=== PATIENT | female | born 1930 | race Caucasian/White ===

== ENCOUNTER 2016-10-02 10:25 | Inpatient (IN) | payer OTHER ==
[~2016-10-02] VITALS: Ht 152.4 cm; Wt 54.0 kg
[~2016-10-02 10:25] MED LIST: ALBUTEROL SULFAT2 MG PO; CALCIUM 500 +1 EAC5 PO; CENTRUM SILVER1 EAC3 PO; CENTRUM SILVER1 EACH PO; DILAUDID2 MG PO; Dilaudid PO; Ecotrin PO; GARLIC500 M1 PO; LEVOTHYROXINE100 MCG PO; LIDODERM 5% P1 PATCH TD; OMEGA 3 FISH O1 EACH PO; OMEGA-3 FISH O1 EAC3 PO; PLAVIX75 MG PO; PREDNISONE10 M1 PO; PREDNISONE50 MG PO; PRESERVISION A1 EAC2 PO; PROAIR HFA8.5 GM IH; PROTONIX40 M1 PO; PROTONIX40 MG PO; PROVENTIL,2.5 MG/3 M IH; Plavix PO; Proventil,Ventolin H IH; SYNTHROID100 MCG PO; Senokot S,Pericolace PO; TOPROL XL100 MG PO; TOPROL XL50 MG PO; Topamax PO; ZITHROMAX Z-PA250 MG PO; ZOCOR20 MG PO; Zocor PO
[2016-10-02 12:08] LABS: EOSINOPHIL (%) 0.2 % (0-5); HEMATOCRIT 36.4 % (36.0-46.0); IMMATURE GRANULOCYTE (%) 0.9 % (0.0-0.7); IMMATURE GRANULOCYTE COUNT 0.1 K/uL; INSTRUMENT ABS NEUTROPHIL CT 11.7 K/uL; LYMPHOCYTE COUNT 1.8 K/uL (1.0-2.8); MCH 30.1 PG (29.0-34.0); MCHC 34.6 G/DL (30.0-36.0); MCV 87.1 FL (83-99); MEAN PLAT.VOLUME 10.3 uM^3 (9.5-12.4); MONOCYTE (%) 10.3 % (3-12); MONOCYTE COUNT 1.6 K/uL (0-0.8); NEUTROPHIL (%) 76.4 % (45-76); NEUTROPHIL COUNT 11.7 K/uL (1.8-6.4); PLATELET COUNT 384 K/uL (156-360); RBC DIS.WIDTH-CV 12.1 % (11.8-14.6); RBC DIS.WIDTH-SD 39.1 % (39-53); RED BLOOD COUNT 4.18 M/uL (3.80-5.20); WHITE BLOOD COUNT 15.3 K/uL (4.1-10.2)
[2016-10-02 12:22] LABS: CHLORIDE 90 mEq/L (99-109); POTASSIUM 3.7 mEq/L (3.7-5.4); SODIUM 125 mEq/L (136-147)
[2016-10-02 12:24] LABS: GLUCOSE 112 mg/dL (70-99)
[2016-10-02 12:25] LABS: ANION GAP 11 MEQ/L (2-14)
[2016-10-02 12:28] LABS: GFR ESTIMATE (CALCULATED) > 59 mL/min/
[2016-10-02 12:29] LABS: UREA NITROGEN (BUN) 11 mg/dL (9-23)
[2016-10-02 12:33] LABS: INFLUENZA A VIRAL ANTIGEN NEGATIVE; INFLUENZA B VIRAL ANTIGEN NEGATIVE
[2016-10-02 15:30] LABS: URIC ACID 2.4 mg/dL (3.1-9.2)
[2016-10-02 15:45] VITALS: BP 170/75
[2016-10-02 18:23] LABS: ANION GAP 8 MEQ/L (2-14); CHLORIDE 88 MEQ/L (99-109); GFR ESTIMATE (CALCULATED) > 59 mL/min/; GLUCOSE 126 mg/dL (70-99); POTASSIUM 3.4 MEQ/L (3.7-5.4); SAMPLE HEMOLYSIS CHECK 0; SAMPLE ICTERIC CHECK 0; SAMPLE LIPEMIA CHECK 0; SODIUM 122 MEQ/L (136-147); UREA NITROGEN (BUN) 9 mg/dL (9-23)
[2016-10-02 20:27] VITALS: BP 136/63
[2016-10-03 00:26] VITALS: BP 132/31; BP 136/63
[2016-10-03 03:52] VITALS: BP 122/58
[2016-10-03 06:44] LABS: ADD MIUA? NO; BILIRUBIN NEGATIVE; BLOOD NEGATIVE; COLOR YELLOW ((YELLOW)); GLUCOSE (STRIP) NEGATIVE; KETONES NEGATIVE; LEUKOCYTES NEGATIVE; NITRITE NEGATIVE; PROTEIN (STRIP) NEGATIVE; SPECIFIC GRAVITY 1.011 (1.000-1.030)
[2016-10-03 07:25] LABS: HEMATOCRIT 33.8 % (36.0-46.0); MCH 29.9 PG (29.0-34.0); MCV 87.8 FL (83-99); MEAN PLAT.VOLUME 10.4 uM^3 (9.5-12.4); PLATELET COUNT 399 K/uL (156-360); RBC DIS.WIDTH-CV 12.4 % (11.8-14.6); RBC DIS.WIDTH-SD 39.8 % (39-53); RED BLOOD COUNT 3.85 M/uL (3.80-5.20); WHITE BLOOD COUNT 14.5 K/uL (4.1-10.2)
[2016-10-03 07:51] LABS: ANION GAP 7 MEQ/L (2-14); CHLORIDE 93 MEQ/L (99-109); GFR ESTIMATE (CALCULATED) > 59 mL/min/; GLUCOSE 95 mg/dL (70-99); SAMPLE HEMOLYSIS CHECK 0; SAMPLE ICTERIC CHECK 0; SAMPLE LIPEMIA CHECK 0; SODIUM 127 MEQ/L (136-147); UREA NITROGEN (BUN) 9 mg/dL (9-23)
[2016-10-03 07:52] LABS: POTASSIUM 4.5 MEQ/L (3.7-5.4)
[2016-10-03 08:03] VITALS: BP 144/71
[2016-10-03 08:31] LABS: POINT-OF-CARE METER ID UU14188625
[2016-10-03 11:53] VITALS: BP 128/63
[2016-10-03 15:22] LABS: ANION GAP 9 MEQ/L (2-14); CHLORIDE 92 MEQ/L (99-109); GFR ESTIMATE (CALCULATED) > 59 mL/min/; GLUCOSE 118 mg/dL (70-99); POTASSIUM 3.8 MEQ/L (3.7-5.4); SAMPLE HEMOLYSIS CHECK 0; SAMPLE ICTERIC CHECK 0; SAMPLE LIPEMIA CHECK 0; SODIUM 127 MEQ/L (136-147); UREA NITROGEN (BUN) 11 mg/dL (9-23)
[2016-10-03 15:55] VITALS: BP 154/74
[2016-10-03 19:31] VITALS: BP 159/74
[2016-10-04 03:45] VITALS: BP 147/67
[2016-10-04 07:43] LABS: ANION GAP 6 MEQ/L (2-14); CHLORIDE 93 MEQ/L (99-109); GFR ESTIMATE (CALCULATED) > 59 mL/min/; GLUCOSE 107 mg/dL (70-99); POTASSIUM 4.2 MEQ/L (3.7-5.4); SAMPLE HEMOLYSIS CHECK 0; SAMPLE ICTERIC CHECK 0; SAMPLE LIPEMIA CHECK 0; SODIUM 127 MEQ/L (136-147); UREA NITROGEN (BUN) 10 mg/dL (9-23)
[2016-10-04 08:02] VITALS: BP 139/61
[2016-10-04 14:23] LABS: ANION GAP 7 MEQ/L (2-14); CHLORIDE 94 MEQ/L (99-109); GFR ESTIMATE (CALCULATED) > 59 mL/min/; GLUCOSE 136 mg/dL (70-99); POTASSIUM 4.3 MEQ/L (3.7-5.4); SAMPLE HEMOLYSIS CHECK 0; SAMPLE ICTERIC CHECK 0; SAMPLE LIPEMIA CHECK 0; SODIUM 129 MEQ/L (136-147); UREA NITROGEN (BUN) 10 mg/dL (9-23)
[2016-10-04 15:11] VITALS: BP 165/70
[2016-10-04 17:14] LABS: INTER. NORMALIZED RATIO 1.1; PROTHROMBIN TIME 11.5 (9.2-11.2)
[2016-10-04 23:21] VITALS: BP 141/64
[2016-10-05 06:42] LABS: ANION GAP 7 MEQ/L (2-14); CHLORIDE 98 MEQ/L (99-109); GFR ESTIMATE (CALCULATED) > 59 mL/min/; GLUCOSE 105 mg/dL (70-99); SAMPLE HEMOLYSIS CHECK 0; SAMPLE ICTERIC CHECK 0; SAMPLE LIPEMIA CHECK 0; SODIUM 134 MEQ/L (136-147); UREA NITROGEN (BUN) 8 mg/dL (9-23)
[2016-10-05 06:47] LABS: INTER. NORMALIZED RATIO 1.1; PROTHROMBIN TIME 11.7 (9.2-11.2)
[2016-10-05 08:54] VITALS: BP 165/70
[2016-10-05 16:22] VITALS: BP 148/99
[2016-10-05 20:00] VITALS: BP 147/67
[2016-10-06 00:31] VITALS: BP 155/74
[2016-10-06 07:16] LABS: ANION GAP 12 MEQ/L (2-14); CHLORIDE 95 MEQ/L (99-109); GFR ESTIMATE (CALCULATED) > 59 mL/min/; GLUCOSE 106 mg/dL (70-99); POTASSIUM 4.6 MEQ/L (3.7-5.4); SAMPLE HEMOLYSIS CHECK 0; SAMPLE ICTERIC CHECK 0; SAMPLE LIPEMIA CHECK 0; SODIUM 133 MEQ/L (136-147); UREA NITROGEN (BUN) 9 mg/dL (9-23)
[2016-10-06 07:18] LABS: INTER. NORMALIZED RATIO 1.3; PROTHROMBIN TIME 13.6 (9.2-11.2)
[2016-10-06 08:17] VITALS: BP 187/82
[2016-10-06] MEDS ORDERED: COUMADIN4 MG PO (14:58)
[2016-10-06] MEDS ORDERED: KEFLEX500 MG PO (14:58)
[2016-10-06] MEDS ORDERED: COLCHICINE0.6 M1 PO (14:58)
[2016-10-06] MEDS ORDERED: FUROSEMIDE20 MG PO (14:58)
[2016-10-06] MEDS ORDERED: LOVENOX60 MG/0.6 SC (14:58)
[2016-10-06] MEDS ORDERED: SODIUM CHLORIDE1 G1 PO (14:58)
[2016-10-06 16:00] VITALS: BP 134/63
[2016-10-06 23:52] VITALS: BP 180/83
[2016-10-07 07:24] LABS: ANION GAP 9 MEQ/L (2-14); CHLORIDE 96 MEQ/L (99-109); GFR ESTIMATE (CALCULATED) > 59 mL/min/; GLUCOSE 97 mg/dL (70-99); POTASSIUM 4.4 MEQ/L (3.7-5.4); SAMPLE HEMOLYSIS CHECK 0; SAMPLE ICTERIC CHECK 0; SAMPLE LIPEMIA CHECK 0; SODIUM 132 MEQ/L (136-147); UREA NITROGEN (BUN) 11 mg/dL (9-23)
[2016-10-07 07:45] VITALS: BP 160/71
[2016-10-07 07:56] LABS: INTER. NORMALIZED RATIO 1.6; PROTHROMBIN TIME 16.7 (9.2-11.2)
== END 2016-10-07 13:41 | disposition home health service (06) | DRG 644 ==
LOC: EME 10:25 → 5SOUTH 13:49 → EDOF 13:49 → 5SOUTH 15:32
PROVIDERS: Emergency Medicine; Internal Medicine
DX: E22.2 Syndrome of inappropriate secretion of antidiuretic hormone (principal); I82.442 Acute embolism and thrombosis of left tibial vein; I82.602 Acute embolism and thrombosis of unspecified veins of left upper extremity; J20.9 Acute bronchitis, unspecified; L03.115 Cellulitis of right lower limb; L03.113 Cellulitis of right upper limb; J98.11 Atelectasis; E87.6 Hypokalemia; R21 Rash and other nonspecific skin eruption; M10.9 Gout, unspecified; J45.909 Unspecified asthma, uncomplicated; I10 Essential (primary) hypertension; G43.909 Migraine, unspecified, not intractable, without status migrainosus; E03.9 Hypothyroidism, unspecified; K21.9 Gastro-esophageal reflux disease without esophagitis; E78.2 Mixed hyperlipidemia; G89.29 Other chronic pain; M19.90 Unspecified osteoarthritis, unspecified site; Z99.81 Dependence on supplemental oxygen
CPT/HCPCS: 70450; 71010; 80048; 80048 91; 81003; 82533 91; 82948; 83880; 83930; 83935; 84300; 84443; 84550; 85025; 85027; 85610; 87040; 87502; 93970; 93971; 94640; 94640 76; 94760; 94799; 99202; 99281; 99285; J0690; J1650; J7030; J7050

== ENCOUNTER 2016-11-30 15:59 | Inpatient (IN) | payer OTHER ==
[~2016-11-30] VITALS: Ht 162.6 cm; Wt 64.6 kg
[~2016-11-30 15:59] MED LIST changes: +COLCHICINE0.6 M1 PO; +COUMADIN4 MG PO; +FUROSEMIDE20 MG PO; +KEFLEX500 MG PO; +LOVENOX60 MG/0.6 SC; +SODIUM CHLORIDE1 G1 PO
[2016-11-30 16:52] LABS: HEMATOCRIT 42.3 % (36.0-46.0); MCH 29.2 PG (29.0-34.0); MCHC 33.8 G/DL (30.0-36.0); MCV 86.3 FL (83-99); MEAN PLAT.VOLUME 10.6 uM^3 (9.5-12.4); PLATELET COUNT 314 K/uL (156-360); RBC DIS.WIDTH-CV 13.3 % (11.8-14.6); RBC DIS.WIDTH-SD 42.2 % (39-53)
[2016-11-30 16:54] LABS: WHITE BLOOD COUNT 15.6 K/uL (4.1-10.2)
[2016-11-30 17:01] LABS: CHLORIDE 94 mEq/L (99-109); POTASSIUM 4.6 mEq/L (3.7-5.4); SODIUM 129 mEq/L (136-147)
[2016-11-30 17:02] LABS: GLUCOSE 108 mg/dL (70-99)
[2016-11-30 17:04] LABS: ANION GAP 10 MEQ/L (2-14)
[2016-11-30 17:06] LABS: GFR ESTIMATE (CALCULATED) > 59 mL/min/
[2016-11-30 17:07] LABS: UREA NITROGEN (BUN) 19 mg/dL (9-23)
[2016-11-30 17:09] LABS: CREATINE KINASE 204 IU/L (1-294)
[2016-11-30 18:31] LABS: ADD MIUA? YES; BILIRUBIN NEGATIVE; BLOOD SMALL; COLOR YELLOW ((YELLOW)); GLUCOSE (STRIP) NEGATIVE; KETONES 5; LEUKOCYTES SMALL; NITRITE NEGATIVE; PROTEIN (STRIP) 30; SPECIFIC GRAVITY 1.015 (1.000-1.030); UROBILINOGEN 0.2 MG/DL (0.2-1.0)
[2016-11-30 18:46] LABS: BACTERIA NONE SEEN /HPF; EPITHELIAL CELLS RARE /HPF; GRANULAR CASTS 0-5 /LPF; HYALINE CASTS 0-5 /LPF; MUCUS 4+ /LPF; RED BLOOD CELLS 0-5 /HPF (0-5); UCUL ADDED? NO
[2016-11-30] MEDS ORDERED: WARFARIN SODIUM4 MG PO (20:48)
[2016-11-30] MEDS ORDERED: SODIUM CHLORIDE1 G1 PO (20:50)
[2016-11-30] MEDS ORDERED: K-DUR20 MEQ PO (20:51)
[2016-11-30] MEDS ORDERED: ALLOPURINOL100 MG PO (20:52)
[2016-11-30 23:40] VITALS: BP 188/84
[2016-12-01 00:12] LABS: INTER. NORMALIZED RATIO 1.5; PROTHROMBIN TIME 15.8 (9.2-11.2)
[2016-12-01 00:18] LABS: HDL CHOLESTEROL 55 MG/DL (Desirable>=50); LDL CHOLESTEROL 119 mg/dL (Desirable<100); NON-HDL CHOLESTEROL 140 mg/dL (Desirable<160); TOTAL CHOLESTEROL 195 mg/dL (Desirable<200); TRIGLYCERIDES 106 MG/DL (Normal: <150)
[2016-12-01 00:39] LABS: TROP-I INTERPRETATION NEGATIVE; TROPONIN-I < 0.01 ng/mL (0.0-0.30)
[2016-12-01 07:16] LABS: Estimated Average Glucose 114 mg/dL (70-123); HEMOGLOBIN A1c (GLYCOHEMOGLOB) 5.6 % HGB (Below 5.7)
[2016-12-01 08:18] LABS: HEMATOCRIT 37.6 % (36.0-46.0); MCH 29.1 PG (29.0-34.0); MCHC 32.7 G/DL (30.0-36.0); MCV 88.9 FL (83-99); PLATELET COUNT 259 K/uL (156-360); RBC DIS.WIDTH-CV 13.6 % (11.8-14.6); RBC DIS.WIDTH-SD 44.1 % (39-53); RED BLOOD COUNT 4.23 M/uL (3.80-5.20); WHITE BLOOD COUNT 9.4 K/uL (4.1-10.2)
[2016-12-01 08:36] LABS: INTER. NORMALIZED RATIO 1.6; PROTHROMBIN TIME 16.5 (9.2-11.2)
[2016-12-01 08:58] LABS: TROP-I INTERPRETATION NEGATIVE; TROPONIN-I < 0.01 ng/mL (0.0-0.30)
[2016-12-01 09:01] VITALS: BP 188/81
[2016-12-01 09:04] LABS: ANION GAP 9 MEQ/L (2-14); CHLORIDE 97 MEQ/L (99-109); GFR ESTIMATE (CALCULATED) > 59 mL/min/; GLUCOSE 85 mg/dL (70-99); POTASSIUM 4.5 MEQ/L (3.7-5.4); SAMPLE HEMOLYSIS CHECK 0; SAMPLE ICTERIC CHECK 0; SAMPLE LIPEMIA CHECK 0; SODIUM 130 MEQ/L (136-147); UREA NITROGEN (BUN) 15 mg/dL (9-23)
[2016-12-01 12:43] VITALS: BP 146/81
[2016-12-01 13:27] LABS: TROP-I INTERPRETATION NEGATIVE; TROPONIN-I < 0.01 ng/mL (0.0-0.30)
[2016-12-01 20:00] VITALS: BP 166/87
[2016-12-01 23:57] VITALS: BP 154/78
[2016-12-02 03:59] VITALS: BP 156/76
[2016-12-02 06:41] LABS: ANION GAP 8 MEQ/L (2-14); CHLORIDE 96 MEQ/L (99-109); INTER. NORMALIZED RATIO 1.4; POTASSIUM 4.4 MEQ/L (3.7-5.4); PROTHROMBIN TIME 14.5 (9.2-11.2); SAMPLE HEMOLYSIS CHECK 0; SAMPLE ICTERIC CHECK 0; SAMPLE LIPEMIA CHECK 0; SODIUM 129 MEQ/L (136-147)
[2016-12-02 06:47] LABS: GFR ESTIMATE (CALCULATED) > 59 mL/min/; GLUCOSE 98 mg/dL (70-99); UREA NITROGEN (BUN) 15 mg/dL (9-23)
[2016-12-02 07:07] LABS: HEMATOCRIT 38.5 % (36.0-46.0); MCH 30.3 PG (29.0-34.0); MCHC 34.5 G/DL (30.0-36.0); MCV 87.7 FL (83-99); RBC DIS.WIDTH-CV 13.4 % (11.8-14.6); RBC DIS.WIDTH-SD 42.9 % (39-53); RED BLOOD COUNT 4.39 M/uL (3.80-5.20); WHITE BLOOD COUNT 10.9 K/uL (4.1-10.2)
[2016-12-02 07:57] LABS: HEMATOLOGY COMMENT 1 SMEAR COMPATIBLE; MEAN PLAT.VOLUME 11.7 uM^3 (9.5-12.4); PLAT.SUFFICIENCY ADEQUATE; PLATELET COUNT 273 K/uL (156-360)
[2016-12-02 08:20] VITALS: BP 149/72
[2016-12-02 11:00] VITALS: BP 142/67
[2016-12-02 16:41] VITALS: BP 140/75
[2016-12-02 19:41] VITALS: BP 137/81
[2016-12-02 23:35] VITALS: BP 123/58
[2016-12-03 04:14] VITALS: BP 145/76
[2016-12-03 08:01] LABS: INTER. NORMALIZED RATIO 1.5; PROTHROMBIN TIME 15.4 (9.2-11.2)
[2016-12-03 08:32] VITALS: BP 159/75
[2016-12-03 08:36] LABS: MCH 30.1 PG (29.0-34.0); MCHC 33.8 G/DL (30.0-36.0); MCV 89.2 FL (83-99); MEAN PLAT.VOLUME 11.9 uM^3 (9.5-12.4); PLATELET COUNT 270 K/uL (156-360); RBC DIS.WIDTH-CV 13.7 % (11.8-14.6); RBC DIS.WIDTH-SD 44.8 % (39-53); RED BLOOD COUNT 4.15 M/uL (3.80-5.20); WHITE BLOOD COUNT 9.1 K/uL (4.1-10.2)
[2016-12-03 10:20] LABS: ANION GAP 11 MEQ/L (2-14); CHLORIDE 95 MEQ/L (99-109); GFR ESTIMATE (CALCULATED) > 59 mL/min/; GLUCOSE 88 mg/dL (70-99); POTASSIUM 4.5 MEQ/L (3.7-5.4); SAMPLE HEMOLYSIS CHECK 0; SAMPLE ICTERIC CHECK 0; SAMPLE LIPEMIA CHECK 0; SODIUM 130 MEQ/L (136-147); UREA NITROGEN (BUN) 13 mg/dL (9-23)
[2016-12-03 12:01] VITALS: BP 143/77
[2016-12-03 15:57] VITALS: BP 125/62
[2016-12-04] VITALS: BP 127/82
[2016-12-04 07:32] LABS: INTER. NORMALIZED RATIO 1.5; PROTHROMBIN TIME 15.9 (9.2-11.2)
[2016-12-04 07:55] LABS: ANION GAP 9 MEQ/L (2-14); CHLORIDE 94 MEQ/L (99-109); GFR ESTIMATE (CALCULATED) > 59 mL/min/; GLUCOSE 92 mg/dL (70-99); POTASSIUM 4.7 MEQ/L (3.7-5.4); SAMPLE HEMOLYSIS CHECK 0; SAMPLE ICTERIC CHECK 0; SAMPLE LIPEMIA CHECK 0; SODIUM 128 MEQ/L (136-147); UREA NITROGEN (BUN) 11 mg/dL (9-23)
[2016-12-04 09:11] VITALS: BP 137/68
[2016-12-04] MEDS ORDERED: LOVENOX60 MG/0.6 SC (11:27)
[2016-12-04] MEDS ORDERED: AMLODIPINE BESYL5 MG PO (11:27)
== END 2016-12-04 14:36 | DRG 641 ==
LOC: EME 15:59 → 5SOUTH 22:30 → EDOF 22:30 → 5SOUTH 23:25
PROVIDERS: Hospitalist; Physician Assistant; Physician Assistant Medical
DX: E87.1 Hypo-osmolality and hyponatremia (principal); M80.88XA Other osteoporosis with current pathological fracture, vertebra(e), initial encounter for fracture; J98.11 Atelectasis; F05 Delirium due to known physiological condition; R09.02 Hypoxemia; I10 Essential (primary) hypertension; E03.9 Hypothyroidism, unspecified; M19.90 Unspecified osteoarthritis, unspecified site; G43.909 Migraine, unspecified, not intractable, without status migrainosus; E78.5 Hyperlipidemia, unspecified; K21.9 Gastro-esophageal reflux disease without esophagitis; Z60.2 Problems related to living alone; E78.00 Pure hypercholesterolemia, unspecified; J45.909 Unspecified asthma, uncomplicated; E66.9 Obesity, unspecified; J98.4 Other disorders of lung; M48.06 Spinal stenosis, lumbar region; I67.2 Cerebral atherosclerosis; F01.50 Vascular dementia, unspecified severity, without behavioral disturbance, psychotic disturbance, mood disturbance, and anxiety; R29.6 Repeated falls; M1A.9XX0 Chronic gout, unspecified, without tophus (tophi); J84.10 Pulmonary fibrosis, unspecified; K57.30 Diverticulosis of large intestine without perforation or abscess without bleeding; Z79.01 Long term (current) use of anticoagulants; Z88.2 Allergy status to sulfonamides; Z88.6 Allergy status to analgesic agent; Z88.5 Allergy status to narcotic agent; Z91.048 Other nonmedicinal substance allergy status; Z68.24 Body mass index [BMI] 24.0-24.9, adult; Z91.81 History of falling; Z99.81 Dependence on supplemental oxygen
CPT/HCPCS: 70450; 70551; 71020; 72131; 73610; 74176; 80048; 80061; 81003; 82550; 83036; 84484; 85027; 85610; 87086; 93005; 94640; 94640 76; 94799; 99202; 99281; 99283; J1650; J2060; J7030

== ENCOUNTER 2016-12-08 08:23 | Emergency (ER) | payer OTHER ==
[~2016-12-08] VITALS: Ht 165.1 cm; Wt 86.0 kg
[~2016-12-08 08:23] MED LIST changes: +ALLOPURINOL100 MG PO; +AMLODIPINE BESYL5 MG PO; +K-DUR20 MEQ PO; +WARFARIN SODIUM4 MG PO
[2016-12-08 11:04] LABS: HEMATOCRIT 40.6 % (36.0-46.0); MCH 29.1 PG (29.0-34.0); MCV 88.3 FL (83-99); MEAN PLAT.VOLUME 9.7 uM^3 (9.5-12.4); PLATELET COUNT 324 K/uL (156-360); RBC DIS.WIDTH-CV 13.4 % (11.8-14.6); RBC DIS.WIDTH-SD 43.3 % (39-53); WHITE BLOOD COUNT 8.4 K/uL (4.1-10.2)
[2016-12-08 11:13] LABS: CHLORIDE 94 mEq/L (99-109); POTASSIUM 4.4 mEq/L (3.7-5.4); SODIUM 131 mEq/L (136-147)
[2016-12-08 11:15] LABS: GLUCOSE 98 mg/dL (70-99)
[2016-12-08 11:17] LABS: ANION GAP 7 MEQ/L (2-14); INTER. NORMALIZED RATIO 2.5; PTT 50.5 (25-32); TOTAL BILIRUBIN 0.4 mg/dL (0.0-1.0)
[2016-12-08 11:19] LABS: ALKALINE PHOSPHATASE 100 IU/L (3-129); GFR ESTIMATE (CALCULATED) > 59 mL/min/
[2016-12-08 11:20] LABS: UREA NITROGEN (BUN) 13 mg/dL (9-23)
[2016-12-08 14:23] VITALS: BP 148/97
== END 2016-12-08 14:23 ==
LOC: EME 08:23
PROVIDERS: Emergency Medicine
DX: M48.56XA Collapsed vertebra, not elsewhere classified, lumbar region, initial encounter for fracture (principal); W18.30XA Fall on same level, unspecified, initial encounter; J45.909 Unspecified asthma, uncomplicated; I10 Essential (primary) hypertension; K21.9 Gastro-esophageal reflux disease without esophagitis; E03.9 Hypothyroidism, unspecified; Z86.73 Personal history of transient ischemic attack (TIA), and cerebral infarction without residual deficits; Z96.659 Presence of unspecified artificial knee joint; Z79.01 Long term (current) use of anticoagulants; Z87.891 Personal history of nicotine dependence
CPT/HCPCS: 70450; 72131; 80053; 85027; 85610; 85730; 99281; 99284

== ENCOUNTER 2017-01-01 09:44 | Emergency (ER) | payer OTHER ==
[~2017-01-01] VITALS: Ht 154.9 cm; Wt 71.0 kg
[2017-01-01 13:55] VITALS: BP 138/70
== END 2017-01-01 14:20 ==
LOC: EME → EDBD 09:44 → EME 09:44
DX: S22.42XA Multiple fractures of ribs, left side, initial encounter for closed fracture (principal); W19.XXXA Unspecified fall, initial encounter; Y92.129 Unspecified place in nursing home as the place of occurrence of the external cause; I10 Essential (primary) hypertension; E78.5 Hyperlipidemia, unspecified; J45.909 Unspecified asthma, uncomplicated; Z86.718 Personal history of other venous thrombosis and embolism; Z79.01 Long term (current) use of anticoagulants; Z88.5 Allergy status to narcotic agent
CPT/HCPCS: 70450; 71100; 72170; 99281; 99285